=== PATIENT | female | born 1995 | race Two or more races ===

== ENCOUNTER 2017-10-19 11:08 | Emergency (ER) | payer OTHER ==
[~2017-10-19] VITALS: Ht 157.5 cm; Wt 57.6 kg
[2017-10-19 11:13] VITALS: BP 114/79
== END 2017-10-19 11:30 | disposition home or self-care (01) ==
LOC: ER 11:09
DX: B02.9 Zoster without complications (principal); N64.4 Mastodynia
CPT/HCPCS: A4606; Z7610

== ENCOUNTER 2018-08-26 09:32 | Emergency (ER) | payer OTHER ==
[~2018-08-26] VITALS: Ht 162.6 cm; Wt 68.0 kg
[2018-08-26 09:41] VITALS: BP 128/74
[2018-08-26] MEDS ORDERED: predniSONE 20 MG TABLET ONE (09:49)
[2018-08-26] MEDS ORDERED: predniSONE 20 MG TABLET PO ONE (10:00)
--- NOTE | 2018-08-26 10:04 | NUR ---
S/P WOUND REPAIR USING SKIN GLUE/ADHESIVE. PATIENT TOLERATED WELL. Patient discharged to home in stable condition. Written and verbal after care instructions given to mom and patient, both verbalizes understanding of instruction.
== END 2018-08-26 09:52 | disposition home or self-care (01) ==
LOC: ER 09:34
DX: K12.2 Cellulitis and abscess of mouth (principal)
CPT/HCPCS: 99283; A4606; J7512

== ENCOUNTER 2018-11-15 15:42 | Emergency (ER) | payer OTHER ==
[~2018-11-15] VITALS: Ht 157.5 cm; Wt 60.8 kg
[2018-11-15 15:57] VITALS: BP 117/81
== END 2018-11-15 17:06 | disposition home or self-care (01) ==
LOC: ER 15:42
DX: S23.120A Subluxation of T2/T3 thoracic vertebra, initial encounter (principal); Z60.2 Problems related to living alone; X58.XXXA Exposure to other specified factors, initial encounter; Y93.89 Activity, other specified; Y92.89 Other specified places as the place of occurrence of the external cause; Y99.8 Other external cause status
CPT/HCPCS: 71045-TC; 73000-TC

== ENCOUNTER 2019-02-24 10:18 | Emergency (ER) | payer OTHER ==
[~2019-02-24] VITALS: Ht 157.5 cm; Wt 63.5 kg
--- NOTE | 2019-02-24 10:41 | NUR ---
SEEN AND EXAMINED BY DR. CAZARES.
--- NOTE | 2019-02-24 10:46 | NUR ---
ER PHLEB AT BEDSIDE FOR BLOOD DRAW.
--- NOTE | 2019-02-24 12:13 | NUR ---
PT. VERBALIZED UNDERSTANDING OF AFTERCARE INSTRUCTIONS.Patient discharged to home in stable condition. Written and verbal after care instructions given. Patient verbalizes understanding of instruction.
[2019-02-24 12:14] VITALS: BP 117/81
== END 2019-02-24 12:14 | disposition home or self-care (01) ==
LOC: ER 10:22
DX: M25.511 Pain in right shoulder (principal); Z60.2 Problems related to living alone
CPT/HCPCS: 36415; 85378-TC